=== PATIENT | female | born 1980 | race Caucasian/White ===

== ENCOUNTER 2019-07-27 18:23 | Emergency (ER) | payer OTHER | END 2019-07-27 20:19 | disposition left against medical advice (07) | LOC: JD.ED 18:23 | DX: Z53.21 Procedure and treatment not carried out due to patient leaving prior to being seen by health care provider (principal) ==

== ENCOUNTER 2025-09-06 09:16 | Day surgery (SDC) | payer OTHER ==
[~2025-09-06 09:16] MED LIST: Sodium Chloride 0.9% 10 ML Syringe FLUSH PRN; Sodium Chloride 0.9% 10 ML Syringe FLUSH SCH
[2025-09-06] MEDS: Lactated Ringers 1,000 ML IV SCH (09:40)
[2025-09-06] MEDS ORDERED: Propofol 200 MG/20 ML SDV ONE ×3 (11:43→12:11)
[2025-09-06] MEDS ORDERED: fentaNYL 100 MCG/2 ML SDV ONE ×2 (11:49→12:09)
[2025-09-06] MEDS ORDERED: dexmedeTOMIDine HCl 200 MCG/2 ML SDV ONE (12:01)
[2025-09-06] MEDS ORDERED: Dexamethasone 4 MG/ML 5 ML MDV ONE (12:06)
[2025-09-06] MEDS ORDERED: Ondansetron 4 MG/2 ML SDV ONE (12:06)
[2025-09-06] MEDS: EPINEPHrine 1 MG/ML SDV ONE (12:19)
[2025-09-06] MEDS ORDERED: Ondansetron 4 MG/2 ML SDV IVPUSH PRN (12:58)
[2025-09-06] MEDS ORDERED: fentaNYL 100 MCG/2 ML SDV IVPUSH PRN (12:58)
[2025-09-06] MEDS ORDERED: Acetaminophen/HYDROcodone 325-5 MG Tab PO PRN (13:29)
== END 2025-09-06 15:42 | disposition home or self-care (01) ==
LOC: JD.SDS 09:16
PROVIDERS: ATTEND Orthopaedic Surgery
DX: S83.241A Other tear of medial meniscus, current injury, right knee, initial encounter (principal); M22.41 Chondromalacia patellae, right knee; Z79.890 Hormone replacement therapy; Z79.899 Other long term (current) drug therapy; Z91.030 Bee allergy status; Z91.013 Allergy to seafood
CPT/HCPCS: 29881; 81025; J0169; J0665; J0690; J1100; J2405; J2704; J3010; J7120; 01400; J1171